=== PATIENT | male | born 1995 | race Caucasian/White ===

== ENCOUNTER 2018-07-19 19:14 | Emergency (ER) | payer OTHER ==
--- NOTE | 2018-07-19 19:18 | EDPHY ---
H & P Time Seen by Provider: 07/19/18 19:18 HPI/ROS: CHIEF COMPLAINT: URI symptoms HISTORY OF PRESENT ILLNESS: [ 23-year-old immunocompetent male ] [PRIMARY CARE PROVIDER:][ ] REVIEW OF SYSTEMS: [10 systems reviewed and negative with the exception of the elements mentioned in the history of present illness] [Constitutional: No fever, no chills. Eyes: No visual complaint ENT: No sore throat. Cardiovascular: No chest pain, no palpitations. Respiratory: No cough, no shortness of breath. Gastrointestinal: No abdominal pain, no vomiting. Genitourinary: No urinary complaints Musculoskeletal: No back pain. Skin: No rashes. No lesions. Neurological: No headache. Aside from elements discussed in the HPI, a comprehensive 10 point review of systems was reviewed and is negative.] [PAST MEDICAL & SURGICAL HISTORY:] [ No pertinent medical or surgical history ] SOCIAL HISTORY:[ ] [FAMILY HISTORY:][ No pertinent family history ] PHYSICAL EXAM (Prior to examination, patient consented to physical exam, hands were washed and my usual and customary physical exam procedures followed) 1) GENERAL: [Well-developed, well-nourished, alert and oriented. Appears to be in no acute distress.] 2) HEAD: [Normocephalic, atraumatic] 3) HEENT: [Pupils equal, round, reactive to light bilaterally. Sclera anicteric. ] [Nasopharynx, oropharynx, clear, no lesions. ][Moist][Dry] mucous membranes. [Ears bilaterally with normal tympanic membranes.] 4) NECK: [Full range of motion, no meningeal signs.] 5) LUNGS: [Clear auscultation bilaterally, no wheezes, no rhonchi, no retractions.] 6) HEART: [Regular rate and rhythm, no murmur, no heave, no gallop.] 7) ABDOMEN: [No guarding, no rebound, no focal tenderness, negative McBurney's, negative Carlos's, negative Rovsing's, negative peritoneal sign], 8) MUSCULOSKELETAL: [Moving all extremities, no focal areas of tenderness, no obvious trauma. No peripheral edema or discoloration.] 9) BACK: [No CVA tenderness, no midline vertebral tenderness, no fluctuance, no step-off, no obvious trauma, no visual or palpable abnormality.] 10) SKIN: [No rash, no petechiae.] [11) Psychiatric: Patient is oriented X 3, there is no agitation.] DIFFERENTIAL DIAGNOSIS: [ ] - Medical/Surgical History Hx Asthma: No Hx Chronic Respiratory Disease: No Hx Diabetes: No Hx Cardiac Disease: No Hx Renal Disease: No Hx Cirrhosis: No Hx Alcoholism: No Hx HIV/AIDS: No Hx Splenectomy or Spleen Trauma: No Other PMH: denies - Social History Smoking Status: Current some day smoker Allergies/Adverse Reactions: No Known Allergies Allergy (Unverified 08/27/16 22:01) Home Medications: Medication Instructions Recorded Finasteride 08/27/16 Ondansetron Odt [Zofran Odt] 4 mg PO Q6-8PRN PRN #8 tab 08/28/16 Departure - Departure Referrals: NONE *PRIMARY CARE P,. [Primary Care Provider] - As per Instructions
--- NOTE | 2018-07-19 19:23 | EDPHY ---
H & P Stated Complaint: fever, aches, soar throat Time Seen by Provider: 07/19/18 19:18 - Personal History Current Tetanus Diphtheria and Acellular Pertussis (TDAP): Unsure - Medical/Surgical History Hx Asthma: No Hx Chronic Respiratory Disease: No Hx Diabetes: No Hx Cardiac Disease: No Hx Renal Disease: No Hx Cirrhosis: No Hx Alcoholism: No Hx HIV/AIDS: No Hx Splenectomy or Spleen Trauma: No Other PMH: denies - Social History Smoking Status: Current some day smoker Constitutional: Initial Vital Signs Temperature (C) 37.3 C 07/19/18 19:20 Heart Rate 118 H 07/19/18 19:20 Respiratory Rate 16 07/19/18 19:20 Blood Pressure 118/70 07/19/18 19:20 O2 Sat (%) 96 07/19/18 19:20 O2 Delivery Mode Room Air Allergies/Adverse Reactions: No Known Allergies Allergy (Unverified 07/19/18 19:19) Home Medications: Medication Instructions Recorded Azithromycin [Zithromax] 250 mg PO DAILY #6 tab 07/19/18 Hydrocodone/APAP 5/325 [[place] 1 - 2 each PO Q4-6PRN PRN #7 tab 07/19/18 5/325] Medical Decision Making ED Course/Re-evaluation: CHIEF COMPLAINT: Fever, sore throat HISTORY OF PRESENT ILLNESS: This patient is a healthy 23 year old male complaining of fever, body aches, and sore throat. His symptoms began this morning. His sore throat causes him significant discomfort. He denies cough. No nausea, vomiting, diarrhea, urinary complaints, or other associated symptoms. He denies recent contact with ill patients. No recent international travel. REVIEW OF SYSTEMS: A comprehensive 10 system review of systems is otherwise negative aside from elements mentioned in the history of present illness and medical decision making. PHYSICAL EXAM: HR, BP, O2 Sat, RR. Temp noted General Appearance: Alert, well hydrated, appropriate, and non-toxic appearing. Head: Atraumatic without scalp tenderness or obvious injury Eyes: Pupils equal, round, reactive to light and accommodation, EOMI, no trauma , no injection. Ears: Clear bilaterally, no perforation, normal landmarks Nose: Atraumatic, no rhinorrhea, clear. Throat: Erythematous with exudates on the right tonsil. No lesions, mucus membranes moist. Neck: Supple, nontender. Right lymphadenopathy. Respiratory: No retractions, no distress, no wheezes, and no accessory muscle use. Lungs are clear to auscultation bilaterally. Cardiovascular: Regular rate and rhythm, no murmurs, rubs, or gallops. Bilateral carotid, radial, dorsalis pedis, and posterior tibial pulses intact. Good capillary refill all extremities. Gastrointestinal: Abdomen is soft, nontender, non-distended. Musculoskeletal: Normal active ROM of all extremities, atraumatic. Neurological: Alert, appropriate, and interactive. The patient has normal DTRs and non-focal cranial nerves, motor, sensory, and cerebellar exam. Skin: No rashes, good turgor, no nodules on palpation. Past medical history: Denies Past surgical history: Noncontributory Family history: Noncontributory Social history: Student at [employer]. Single. Does not abuse tobacco, drugs, or alcohol. DIFFERENTIAL DIAGNOSIS: The differential diagnosis for the patient's fever included but was not limited to pharyngitis, pneumonia, urinary tract infection, viral syndrome, meningitis, and sepsis. MEDICAL DECISION MAKIN23 y/o male presents with one day history of fever, body aches, and sore throat. Throat is erythematous with exudates on the right tonsil. Presentation is consistent with bacterial pharyngitis. Plan to administer 40mg PO Prednisone for symptom relief. Plan to discharge home in good condition with prescription for Z-pack. The first 500mg dose of azithromycin will be administered here in the emergency department. Follow up and return precautions discussed. The patinet is comfortable with this plan. - Data Points Medications Given: Discontinued Medications Azithromycin (Zithromax) 500 mg PO EDNOW ONE PRN Reason: Protocol Stop: 07/19/18 19:31 Last Admin: 07/19/18 19:34 Dose: 500 mg Prednisone (Prednisone) 40 mg PO EDNOW ONE Stop: 07/19/18 19:31 Last Admin: 07/19/18 19:33 Dose: 40 mg Departure - Departure Disposition: Home, Routine, Self-Care Clinical Impression: Pharyngitis Qualifiers: Pharyngitis/tonsillitis etiology: other specified organisms Qualified Code(s): J02.8 - Acute pharyngitis due to other specified organisms Condition: Good Instructions: Hydrocodone/Acetaminophen (By mouth), Azithromycin (By mouth), Pharyngitis (ED) Additional Instructions: Take z-pack as directed. Take Tylenol or ibuprofen as directed below as needed for pain or fever. You can take Vicodin as prescribed as needed for severe pain. Do not take Tylenol with this medication as they both contain acetaminophen. See below for further directions. Return for uncontrollable fever, chest pain, difficulty breathing, or other worsening of condition. Adult Pain & Fever Control: We recommend Acetaminophen (Tylenol) and Ibuprofen (Motrin,Advil) for pain and fever control. When fever is high or pain severe, both drugs can be used at the same time, but at different intervals. Please note the time differences. Your dose is: Acetaminophen 650mg every 4 to 6 hours Ibuprofen 600mg every 6-8 hours with food Note: do not take Acetaminophen with Hydrocodone (Vicodin, Lortab) or Oxycodone (Percocet). These medications also contain Acetaminophen. No more than 3000mg of Acetaminophen should be taken in 24 hours (for an adult). Referrals: Roddy Garza MD [Medical Doctor] - As per Instructions Stand Alone Forms: School Excuse Prescriptions: Azithromycin [Zithromax] 250 mg PO DAILY #6 tab Hydrocodone/APAP 5/325 [[place] 5/325] 1 - 2 each PO Q4-6PRN PRN #7 tab PRN Reason: Pain, Moderate Report Scribed for: Janusz Schmidt Report Scribed by: Michelle Argueat Date of Report: 07/19/18 Time of Report: 19:36
[2018-07-19] MEDS ORDERED: predniSONE 20 MG TAB PO ONE (19:30)
[2018-07-19] MEDS ORDERED: AZITHROMYCIN 250 MG TAB PO ONE (19:30)
[2018-07-19 19:45] VITALS: BP 126/62
== END 2018-07-19 19:44 | disposition home or self-care (01) ==
DX: J02.8 Acute pharyngitis due to other specified organisms (principal); F17.200 Nicotine dependence, unspecified, uncomplicated
CPT/HCPCS: J7512